=== PATIENT | male | born 1995 | race Caucasian/White ===

== ENCOUNTER 2018-06-06 22:00 | Inpatient (IN) | payer BC, OTHER ==
[2018-06-06] MEDS ORDERED: ONDANSETRON 4 MG/2 ML VIAL IVP ONE (22:09)
[2018-06-06] MEDS ORDERED: HYDROmorphONE/DILAUDID 2 MG/ML INJ IVP ONE ×2 (22:09→23:39)
[2018-06-06] MEDS ORDERED: NS 1,000 ML IV ONE (22:09)
--- NOTE | 2018-06-06 22:16 | EDPHY ---
H & P Time Seen by Provider: 06/06/18 22:06 HPI/ROS: CHIEF COMPLAINT: Trauma HISTORY OF PRESENT ILLNESS: The patient is a 22-year-old man who tried to sit on Hammock that was type between chiminies. One of the chiminies collapsed and bricks fell on top of him. He has a broken tooth and a laceration to his forehead. He has pain to his right clavicle and to his right upper abdomen. This happened just prior to arrival. He has been able to ambulate. He denies loss of consciousness. Severity: Moderate Modifying factors: None REVIEW OF SYSTEMS: Constitutional: denies: chills, fever, recent illness, recent injury EENTM: denies: blurred vision, double vision, nose congestion Respiratory: denies: cough, shortness of breath Cardiac: denies: chest pain, irregular heart rate, lightheadedness, palpitations Gastrointestinal/Abdominal: denies: abdominal pain, diarrhea, nausea, vomiting, blood streaked stools Genitourinary: denies: dysuria, frequency, hematuria, pain Musculoskeletal: See HPI Skin: See HPI Neurological: denies: headache, numbness, paresthesia, tingling, dizziness, weakness Hematologic/Lymphatic: denies: blood clots, easy bleeding, easy bruising Immunologic/allergic: denies: HIV/AIDS, transplant Nursing assessment reviewed Vital signs reviewed normal Patient is alert not anxious or lethargic and in no distress no cervical collar HEAD: Star-shaped laceration to forehead in hair line. no raccoon eyes, no Floyd sign. NECK: is nontender and has painless range of motion, trachea is midline, NEXUS criteria negative (no midline tenderness no distracting injury no altered mental status no recent alcohol and no focal neuro deficits EYES: pupils equal round reactive to light and accommodating, extraocular muscles are intact no palsy or entrapment, no subconjunctival hemorrhage ENT: Normal external inspection, dental fracture see diagram, no malocclusion CARDIOVASCULAR: heart sounds normal, not tachycardic or bradycardic, Chest is non-tender no rib tenderness no palpable fracture, no crepitus, no subcutaneous emphysema RESPIRATORY: no splinting, no paradoxical movements, gross sounds normal, no wheezes no rales no rhonchi, no respiratory distress pain and abrasion to right clavicle, no obvious deformity ABDOMEN: Complains of pain right upper quadrant. Abdomen is nontender in all 4 quadrants no guarding no rebound, no distention, no hernias, no masses or bruits. GENITAL/RECTAL: Normal external inspection, Stable pelvis NEUROLOGIC/PSYCH: Oriented x3, cranial nerves normal as assessed, face symmetrical, sensation normal, motor grossly normal, not perseverating, cranial nerves II through XII intact normal reflexes Rubi Coma score: 15 SKIN: Abrasion left thigh, laceration as above, abrasion over right clavicle. no ecchymosis, nondiaphoretic. BACK: No CVA tenderness, no vertebral point tenderness, no muscle spasm normal range of motion EXTREMITIES: Atraumatic, nontender able to bear weight, no pulse deficit, normal range of motion, normal color and temperature Source: Patient Exam Limitations: No limitations - Personal History Current Tetanus/Diphtheria Vaccine: Yes - Medical/Surgical History Hx Asthma: No Hx Chronic Respiratory Disease: No Hx Diabetes: No Hx Cardiac Disease: No Hx Renal Disease: No Hx Cirrhosis: No Hx Alcoholism: No Hx HIV/AIDS: No - Family History Significant Family History: No pertinent family hx - Social History Smoking Status: Never smoked Alcohol Use: None Constitutional: Initial Vital Signs Temperature (C) 36.7 C 06/06/18 22:09 Heart Rate 66 06/06/18 22:09 Respiratory Rate 20 06/06/18 22:09 Blood Pressure 107/57 L 06/06/18 22:09 O2 Sat (%) 100 06/06/18 22:09 O2 Delivery Mode Nasal Cannula O2 (L/minute) 2 Allergies/Adverse Reactions: No Known Allergies Allergy (Verified 06/07/18 07:50) Home Medications: Medication Instructions Recorded Lisinopril [Zestril 10 mg (*)] 10 mg PO DAILY 06/06/18 Acetaminophen [Tylenol 325mg (*)] 325 mg PO DAILY PRN 06/07/18 ED Images - Head Mouth: 1 - Dental fracture, no pulp visible, no laxity Medical Decision Making - Diagnostics Imaging: Discussed imaging studies w/ director call center sales Radiologist Procedures: Procedure: Laceration repair. Verbal consent was obtained from the patient. The 3 cm forehead laceration was anesthetized with 1% lidocaine with epi and bicarbonate locally infiltrated. The wound was irrigated copiously according to protocol, draped and explored to its base. It was approximately 1/2 cm deep. There were no deep structures involved. No tendon, nerve, or vascular injury was identified when explored. No foreign body was identified. The wound was repaired with 5 sutures, 4.0 Prolene, interrupted. The wound repair was complex with multiple flap alignment. The procedure was performed by myself. A dressing was then placed with sterile gauze and bacitracin. ED Course/Re-evaluation: Patient had a hard time getting in good position for the chest x-ray. I will order CT of his chest as well. 11:30 p.m. Patient tolerated laceration repair. We discussed his CT results. I will admit to Dr. Owens on the trauma service. Blood pressure is currently 130/80. Heart rate is 70. 1145 discussed the case with Dr. Owens who recommends ICU admission. Differential Diagnosis: Partial list of the Differential diagnosis considered include but were not limited to; abrasion, laceration, intracranial injury intra-abdominal injury, scapular fracture and although unlikely based on the history and physical exam, I also considered pneumothorax, rib fracture. Critical Care Time: Critical care time spent by me, Dr. Velásquez exclusive with this patient was 45 minutes, exclusive of the PA time exclusive of procedures. 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[employer]) 0 mg IV PRN PRN; Protocol PRN Reason: Pain, Severe Unable to Take PO Stop: 06/17/18 07:53 Last Admin: 06/07/18 10:19 Dose: 6 mg Lactated Ringer's (Lr) 1,000 mls @ 100 mls/hr IV CONT STEPHANE Stop: 12/04/18 00:29 Last Admin: 06/07/18 13:45 Dose: 1,000 mls Pantoprazole Sodium (Protonix) 40 mg IVP DAILY STEPHANE Stop: 12/04/18 08:59 Last Admin: 06/07/18 09:01 Dose: 40 mg Discontinued Medications Hydromorphone HCl (Dilaudid) 1 mg IVP EDNOW ONE Stop: 06/06/18 22:10 Last Admin: 06/06/18 22:16 Dose: 1 mg Hydromorphone HCl (Dilaudid) 1 mg IVP EDNOW ONE Stop: 06/06/18 23:40 Last Admin: 06/06/18 23:40 Dose: 1 mg Hydromorphone HCl (Dilaudid) 1 mg IVP EDNOW ONE Stop: 06/07/18 00:15 Last Admin: 06/07/18 00:16 Dose: 1 mg Sodium Chloride (Ns) 1,000 mls @ 0 mls/hr IV ONCE ONE; Wide Open PRN Reason: Protocol Stop: 06/06/18 22:10 Last Admin: 06/06/18 22:17 Dose: 1,000 mls Ertapenem 1 gm/ Sodium (Chloride) 100 mls @ 200 mls/hr IV EDNOW ONE PRN Reason: Protocol Stop: 06/07/18 00:54 Last Admin: 06/07/18 02:57 Dose: 100 mls Ketorolac Tromethamine (Toradol) 30 mg IVP ONCE ONE Stop: 06/07/18 00:01 Last Admin: 06/07/18 00:01 Dose: 30 mg Ondansetron HCl (Zofran) 4 mg IVP EDNOW ONE Stop: 06/06/18 22:10 Last Admin: 06/06/18 22:17 Dose: 4 mg Departure - Departure Disposition: [facility] Acute Clinical Impression: Dental trauma Qualifiers: Encounter type: initial encounter Qualified Code(s): S09.93XA - Unspecified injury of face, initial encounter Liver laceration Qualifiers: Encounter type: initial encounter Qualified Code(s): S36.113A - Laceration of liver, unspecified degree, initial encounter Closed right scapular fracture Qualifiers: Encounter type: initial encounter Scapula location: body Fracture alignment: nondisplaced Qualified Code(s): S42.114A - Nondisplaced fracture of body of scapula, right shoulder, initial encounter for closed fracture Contusion of kidney Qualifiers: Encounter type: initial encounter Laterality: right Qualified Code(s): S37.011A - Minor contusion of right kidney, initial encounter Condition: Fair
[2018-06-06 22:24] LABS: PLATELET COUNT 374 10^3/uL (150-400)
[2018-06-06 22:34] LABS: INR 1.14 (0.83-1.16); PROTIME(PATIENT) 14.8 SEC (12.0-15.0)
[2018-06-06] MEDS ORDERED: IOPAMIDOL (ISOVUE-300) 100 ML BTL ONE (22:38)
[2018-06-06] MEDS ORDERED: HYDROmorphONE/DILAUDID 2 MG/ML INJ ONE (23:32)
[2018-06-06] MEDS ORDERED: KETOROLAC 30 MG/1 ML SDV ONE (23:59)
[2018-06-07] MEDS ORDERED: KETOROLAC 30 MG/1 ML SDV IVP ONE
[2018-06-07] MEDS ORDERED: NALOXONE HCL 0.4 MG/ML INJ IVP PRN ×2 (00:03→07:54)
[2018-06-07] MEDS ORDERED: HYDROmorphONE/DILAUDID 2 MG/ML INJ IVP ONE (00:14)
[2018-06-07] MEDS ORDERED: LIDOCAINE 2% JELLY 20 ML (UROJECT) ONE (00:23)
[2018-06-07] MEDS ORDERED: ERTAPENEM 1 GM in NS 100 ML IV ONE (00:25)
--- NOTE | 2018-06-07 02:37 | GHP ---
[f rep st] History and Physical ADMITTING DIAGNOSIS: Multiple trauma with scalp laceration (repaired), right scapular fracture, grade 3 liver laceration, hemoperitoneum, inferior pubic ramus fracture, contusion lower pole right kidney, right L1 transverse process fracture (age-indeterminate), right frontal sinusitis, left upper central incisor fracture. 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 A hammock was strung between two chimneys and when he got into it one of the chimneys fell over. Multiple bricks landed on him. He did not have to be dug out of the pile of bricks as they hit him and rolled off. This happened at approximately 9 p.m. He came directly to the emergency room and was evaluated by Dr. Emmanuel Velásquez. Initially, he was felt to be minimally injured. His star-shaped laceration in his hairline was repaired. A scapular fracture was identified. He started complaining of more abdominal tenderness. Repeat evaluation was carried out with a CT. This identified the hemoperitoneum, the laceration in the left lobe of the liver (grade 3), and contusion in the lower pole of the right kidney without significant perinephric hemorrhage. It reconfirmed the comminuted fracture of the right scapular body, the inferior pubic ramus fracture on the right, and the transverse process of L1. Small bubbles of peritoneal free air were identified in the abdomen. As it has become more complicated, I was asked to consult. Initially, his pain was poorly controlled and he had a very tender abdomen. His airway was clear, his breathing was npt compromised and there was no active hemorrhage. Further stabilization was carried out including placing a Sheriff catheter, repeat lab work, managing pain and observation. When I returned 40 minutes later his abdomen was much softer. He was much more comfortable. His vital signs were stable. Additional history: He does not smoke. He drinks approximately 5 drinks a week. He has no known drug allergies. He has takes lisinopril 10 mg a day for hypertension for 6 years. His prior surgeries include a left labral tear repair and also a right mandibular fracture repair. He had an osteochondroma removed from his left 1st toe. There is no history of rheumatic fever, tuberculosis, hepatitis, or transfusions. Wears contacts for visual correction. No limits on his activities. No history of steroid use. PHYSICAL EXAMINATION: GENERAL: He is now awake and alert. He has the repaired laceration in his hairline center of his forehead. He has a dental fracture mentioned above. He is awake, alert, and oriented. His skull is otherwise normocephalic. There is no Floyd sign or raccoon eyes. He has normal dental occlusion save for the missing portion of the tooth. NECK: Supple and nontender. There are no focal lateralizing neurologic findings. Strength is 5/5 in all muscle groups. His back is unremarkable. LUNGS: Clear to auscultation. Thoracic and lumbar spine nontender to palpation, which lends some degree of credence to the concept that the right L1 transverse process fracture may be old. His pelvis is stable to AP and lateral compression. ABDOMEN: Now soft and nontender. Sheriff catheter is in place. Lower extremities are unremarkable. PLAN: I will put him in the intensive care unit and follow serial H and Hs and the abdominal examination. Should he deviate from the expected course, operative evaluation may be carried out. /[id number]/MODL MTDD
[2018-06-07] MEDS: LR 1,000 ML IV SCH ×3 (02:57→23:16)
[2018-06-07] MEDS: HYDROmorphONE/DILAUDID 1 MG/ML INJ IVP PRN ×5 (03:01→07:56)
[2018-06-07 04:20] LABS: INR 1.19 (0.83-1.16); PROTIME(PATIENT) 15.3 SEC (12.0-15.0)
[2018-06-07] MEDS: ACETAMINOPHEN 500 MG TAB PO SCH ×3 (06:10→20:50)
[2018-06-07] MEDS ORDERED: HYDROmorphONE/DILAUDID 6 MG/30 ML PCA IV PRN (07:54)
[2018-06-07] MEDS ORDERED: PANTOPRAZOLE SODIUM 40 MG VIAL IVP SCH (09:00)
--- NOTE | 2018-06-07 09:44 | GCON ---
[f rep st] CONSULTATION [facility] CONSULTATION REASON FOR ADMISSION: Multitrauma. Mr. Galan is a 22-year-old white male without past medical histo ry. He presented to the emergency room after numerous bricks fell on top of him. Apparently, he was sitting on a hammock that was attached between 2 chimneys. He sat on the hammock and a friend joine d him on the hammock, at which time the bricks fell, landing mostly on him. He was brought to the ergency room and was found to have a fractured right clavicle, a broken tooth, and a laceration to ak s forehead. Abdominal CT revealed a laceration of the left hepatic lobe and a contusion of the lower pole of the right kidney. He also was found to have a comminuted fracture of the right scapula, pos sible inferior pubic ramus fracture on the right, and a fracture through the right transverse process of L1 vertebral body. In discussion with the patient, he states that overall he feels somewhat bett er. His pain is reasonably well controlled except when he moves. He is awake and alert and oriented . REVIEW OF SYSTEMS: 10-point review of systems performed and negative except for what is listed in HP I. PAST MEDICAL HISTORY: Hypertension. FAMILY HISTORY: Noncontributory. SOCIAL HISTORY: No history of tobacco use. He states he drinks 5 alcoholic drinks per week. 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 MEDICATIONS: Medications at home include lisinopril. PHYSICAL EXAMINATION: VITAL SIGNS: Blood pressure is 136/68, pulse is 69, respirations 13, temperat ure 36.6, oxygen saturation 97% on 3 L. GENERAL: He is a well-developed, well-nourished, 22-year-ol d white male who is resting comfortably, in no acute distress. HEENT: Eyes are SAIMA, EOMI. Throat s hows no erythema or tonsillar hypertrophy. He has a fractured tooth. NECK: Supple. No cervical ad enopathy. HEART: Regular rate and rhythm without murmurs, rubs, gallops. LUNGS: Clear to ausculta tion without wheeze or rhonchi. ABDOMEN: Soft, nontender. Bowel sounds are present. EXTREMITIES: No clubbing, cyanosis, or edema. LABORATORIES: White count is 20, hemoglobin 13, hematocrit 38, platelet count 290. INR is 1.19. So dium 139, potassium 3.8, chloride 104, CO2 24, BUN 17, creatinine 1.1, glucose is 145. AST is elevat ed to 67, ALT is elevated to 83. Alcohol level is 34. IMPRESSION: 1. Status post multi-trauma. 2. Scapular fracture. 3. Grade 3 liver laceration. 4. Inferior pubic ramus fracture. 5. Hemoperitoneum. 6. Contusion, right kidney. 7. Left upper central incisor fracture. RECOMMENDATIONS: 1. Continue adequate pain control. 2. DVT and PE prophylaxis. 3. Stress ulcer prophylaxis. 4. PT and OT. 5. Will discuss case with Trauma Surgery. 6. Thank you very much. /[id number]/MODL
--- NOTE | 2018-06-07 10:01 | PDMN ---
Medical Necessity Medical necessity: Pt meets inpt criteria peer MD order and Pain Management GRG and Gastroenterology GRG, Hemoperitoneum, est LOS>2MN for eval/ management/ monitoring of multiple injuries sustained in fall including liver laceration- grade 3 w/mod volume peritoneal hemorrhage accumulating in deep pelvis, R renal contusion, comminuted fx of R scapular body, inferior pubic ramus fx R, L upper central incisor fx, scalp laceration. Scalp laceration repaired, pt requiring ICU monitoting, serial H&H's, pain management IV Dialudid every 1-2 hrs over night, IVF.
[2018-06-07] MEDS ORDERED: POLYETHYLENE GLYCOL 3350 17 GM PKT PO PRN (10:42)
[2018-06-07] MEDS ORDERED: MAGNESIUM HYDROXIDE 30 ML UDCUP PO PRN (10:42)
[2018-06-07] MEDS ORDERED: BISACODYL 10 MG SUPP PR PRN (10:42)
[2018-06-07] MEDS ORDERED: LACTULOSE 20 GM/30 ML UDCUP PO PRN (10:42)
--- NOTE | 2018-06-07 11:36 | ASMTCMCOM ---
CM Note CM Note Notes: Patient admitted with multiple fractures and internal injuries after being crushed by bricks that fell from a chimney. He is stable and A&O x4. I met with patient and explained Case Management involvement. 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 His apartment is in the basement. His uncle is at the bedside, and his parents are driving here from [place] today. He may need letters/documentation for school; he will email his professors today. PT/OT have been ordered, as well as an inpatient rehab consult. Case Management will follow for discharge planning. Date Signed: 06/07/2018 10:26 AM Electronically Signed By:Jennifer Ospina RN
--- NOTE | 2018-06-07 12:45 | TRAUMAPN ---
Trauma Progress Note Assessment/Plan: 22 y/o M s/p fall while swinging on hammock between two chimneys. Left liver lobe laceration grade III- blood counts trending down, but stable. May need exploratory laparotomy, but will hold off given clinical improvement and stable H&H Right kidney contusion- uo good Right scapular fx- nonoperative Possible inferior pubic ramus fx right side Right transverse process of L1 vertebral body Free intraperitoneal air- WBC stable S: Feeling much better. No new pain. Abdominal pain much improved. O:Alert Afebrile HDS VSS Cardiac: RRR Lungs: No increased WOB, CTA bilaterally Abdomen soft, nontender, normoactive BS Extremities: full strength in all extremities. Limited ROM in R arm. : uo adequate Neuro: pain. 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
[2018-06-07] MEDS: SENNOSIDES/DOCUSATE SODIUM TAB PO SCH ×2 (20:38→20:50)
[2018-06-07] MEDS ORDERED: ALBUMIN 5% 500 ML IV ONE (21:00)
--- NOTE | 2018-06-07 22:56 | SOAPPROG ---
SOAP Progress Note Assessment/Plan: Assessment: VS STABLE/ HCT INCHING DOWN/ AFEBRILE/ UO MARGINAL FU CT SCAN STABLE AND NO FREE AIR ABD SOFT, MINIMALLY TENDER Plan:SERIAL HCTS 06/07/18 22:55 Objective: Vital Signs Temp Pulse Resp BP Pulse Ox 37.0 C 97 15 132/75 H 96 06/07/18 20:00 06/07/18 22:00 06/07/18 22:00 06/07/18 22:00 06/07/18 22:00 Laboratory Results 06/07/18 20:05 06/07/18 04:00 06/06/18 06/07/18 06/08/18 05:59 05:59 05:59 Intake Total 1344 1204 Output Total 790 200 Balance 554 1004 PT 15.3 SEC (12.0-15.0) H 06/07/18 04:00 INR 1.19 (0.83-1.16) H 06/07/18 04:00 ICD10 Worksheet Patient Problems: Problems Problem Status Onset Closed right scapular fracture Acute Contusion of kidney Acute Dental trauma Acute Liver laceration Acute
[2018-06-08] MEDS: ACETAMINOPHEN 500 MG TAB PO SCH ×3 (04:45→21:52)
--- NOTE | 2018-06-08 05:39 | PDCONSULT ---
Interventionist Note: Orthopaedic Consult DOS: 06/08/2018 HPI: Called to ICU floor by Dr. Ball team to see this 22y M student s/p accident with part of a chimney falling on him p/w multiple injuries including a liver laceration, hemoperitoneum, Right scapula fracture and possible pelvic injury. Right arm was placed in a sling earlier. Patient c/o some anterior, distributed right hip region pain but mostly superficial. hasn't had trouble moving hip itself. 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 otherwise doing well until this trauma PE: AxOx3. Conversational and responsive. unlabored breathing. RUE: small abrasion on top of shoulder. No Direct TTP around shoulder joint. Indirect pain with manipulation along posterior shoulder blade. FROM elbow/ wrist/hand/fingers without pain. 5/5 EPL/APB/FDS/FDP2,5/IO. SILT A/R/U/M. 2+ Radial pulse. RLE: TTP along anterior hip skin and iliac crest. No pain with right hip ROM, moving knee/ankle/foot well. SILT S/S/SP/DP/T. 2+ DP/PT. LUE: FROM, 5/5, SILT A/R/U/M, 2+ radial pulse LLE: FROM at hip and distal, 5/5 motor, SILT S/S/SP/DP/T, 2+ DP/PT IMAGING: XR pelvis, no acute fractures of ring noted. Right femur portions visualized without fracture. Right Scapula with min displaced blade fracture but no dislocation and no disruption of glenoid. CT chest shows scapula fracture of body without glenoid involvement. CT pelvis shows old, healed ischial tuberosity avulsion, possible distant hamstring avulsion, but no acute osseous fracture noted AP: 22y M [employer] student p/w Right nonoperative scapula fracture, evidence of healed , distant ischial tuberosity injury - RLE: WBAT - RUE: WBAT, sling for comfort, Elbow ROM 3x/day if using sling. WE discussed that his should ROM may remain painful but should gradually improve with time. - No operative fixation anticipated. - Followup with Dr. Levin in 6 weeks at [facility] for repeat shoulder exam and imaging, possible therapy if needed. . - Please call if ?
--- NOTE | 2018-06-08 06:41 | SOAPPROG ---
SOAP Progress Note Assessment/Plan: Assessment: VS STABLE/ HCT INCHING DOWN/ AFEBRILE/ UO MARGINAL FU CT SCAN STABLE AND NO FREE AIR ABD SOFT, MINIMALLY TENDER Plan:SERIAL HCTS 06/07/18 22:55 06/08/18 06:39 some ruq pain and tenderness but afebrile and hungry/ hct stable at 34/ uo ok/ lytes ok chest clear, cor rr Objective: Vital Signs Temp Pulse Resp BP Pulse Ox 37.0 C 96 17 123/69 H 97 06/07/18 20:00 06/08/18 04:00 06/08/18 04:00 06/08/18 04:00 06/08/18 04:00 Laboratory Results 06/08/18 04:35 06/08/18 04:35 06/07/18 06/08/18 06/09/18 05:59 05:59 05:59 Intake Total 1344 2714 Output Total 790 750 Balance 554 1964 PT 15.3 SEC (12.0-15.0) H 06/07/18 04:00 INR 1.19 (0.83-1.16) H 06/07/18 04:00 ICD10 Worksheet Patient Problems: Problems Problem Status Onset Closed right scapular fracture Acute Contusion of kidney Acute Dental trauma Acute Liver laceration Acute
[2018-06-08] MEDS ORDERED: HYDROmorphONE/DILAUDID 6 MG/30 ML PCA IV PRN (07:54)
--- NOTE | 2018-06-08 08:42 | PDINTPN ---
Support Associate Progress Note Assessment/Plan: Assessment/plan: * Status post multitrauma * Right scapular fracture -now in a sling -has been seen by Orthopedics. No surgery planned any time soon. He will follow up in the office * Grade 3 liver laceration * Hemoperitoneum -follow hemoglobin hematocrit closely * Inferior pubic ramus fracture on the right * Fractured tooth * Forehead laceration * PT/OT * Out of bed to chair Subjective: Pain better controlled. Slept well last night. Objective: Vital Signs Temp Pulse Resp BP Pulse Ox 37.0 C 71 15 131/73 H 92 06/07/18 20:00 06/08/18 06:00 06/08/18 06:00 06/08/18 06:00 06/08/18 06:00 Laboratory Results 06/08/18 04:35 06/08/18 04:35 06/07/18 06/08/18 06/09/18 05:59 05:59 05:59 Intake Total 1344 2714 Output Total 790 750 Balance 554 1964 PT 15.3 SEC (12.0-15.0) H 06/07/18 04:00 INR 1.19 (0.83-1.16) H 06/07/18 04:00 - Time Spent With Patient Time Spent With Patient: 35 min of time spent with patient, over 1/2 involved with coordination of care or counseling. Case discussed with nursing Physical Exam - Physical Exam General Appearance: alert, no apparent distress EENT: PERRL/EOMI, other (Facial abrasions) Neck: non-tender, full range of motion, supple, normal inspection Respiratory: chest non-tender, lungs clear, normal breath sounds Cardiac/Chest: normal peripheral pulses, regular rate, rhythm Peripheral Pulses: 2+: carotid (R), carotid (L), femoral (R), femoral (L), dorsalis-pedis (R), dorsalis-pedis (L) Abdomen: soft, No non-tender Male Genitalia: deferred Rectal: deferred Skin: normal color, warm/dry Extremities: normal range of motion, non-tender, normal inspection, normal capillary refill Neuro/Psych: no motor/sensory deficits, alert, normal mood/affect, oriented x 3 ICD10 Worksheet Patient Problems: Problems Problem Status Onset Closed right scapular fracture Acute Contusion of kidney Acute Dental trauma Acute Liver laceration Acute
--- NOTE | 2018-06-08 09:31 | TRAUMAPN ---
Trauma Progress Note Assessment/Plan: PAD#2 06/08/2018 Issues: Scalp lac Right scapular comminuted fracture Grade III liver lac ( left lobe) Hemoperitoneum Right L1 transverse process fracture Right inferior pubic ramus fracture Hypertemsion ( chronic problem) Assessment: Scalp lac - Repair clean and dry Right scapular comminuted fracture - using sling for pain control/support Grade III liver lac ( left lobe) VSS, HCT down slightly, Urine output adequate Hemoperitoneum - Same Right L1 transverse process fracture - thought to be old Right inferior pubic ramus fracture - thought to be old Hypertension ( chronic problem) - BP stable Subjective: No stool yet Pain control an issue when sleeping and not taking meds Objective: Vital Signs Temp Pulse Resp BP Pulse Ox 37.0 C 71 15 131/73 H 92 06/07/18 20:00 06/08/18 06:00 06/08/18 06:00 06/08/18 06:00 06/08/18 06:00 Laboratory Results 06/08/18 04:35 06/08/18 04:35 06/07/18 06/08/18 06/09/18 05:59 05:59 05:59 Intake Total 1344 2714 Output Total 790 750 500 Balance 554 1964 -500 PT 15.3 SEC (12.0-15.0) H 06/07/18 04:00 INR 1.19 (0.83-1.16) H 06/07/18 04:00 - C-Spine Clearance Cervical Spine Cleared: Yes Provider who Cleared Cervical Spine: ira Physical Exam - Physical Exam General Appearance: WD/WN, alert, no apparent distress Neck: non-tender, full range of motion, supple Respiratory: chest non-tender, lungs clear, normal breath sounds Cardiac/Chest: regular rate, rhythm Abdomen: normal bowel sounds, non-tender, soft Male Genitalia: deferred Rectal: deferred Back: Normal inspection Skin: normal color, warm/dry Neuro/Psych: no motor/sensory deficits, alert, normal mood/affect, oriented x 3 Time Spent w/Patient (minutes): 25
[2018-06-08] MEDS: SENNOSIDES/DOCUSATE SODIUM TAB PO SCH ×2 (09:39→20:47)
[2018-06-08] MEDS: PANTOPRAZOLE SODIUM 40 MG TAB PO SCH (09:39)
[2018-06-08] MEDS: KETOROLAC 30 MG/1 ML SDV IVP SCH ×3 (10:12→23:47)
[2018-06-08] MEDS ORDERED: KETOROLAC 30 MG/1 ML SDV IVP SCH (12:00)
--- NOTE | 2018-06-08 16:01 | CPEKG ---
Test Reason : OPEN Blood Pressure : / mmHG Vent. Rate : 058 BPM Atrial Rate : 057 BPM P-R Int : 128 ms QRS Dur : 076 ms QT Int : 415 ms P-R-T Axes : 021 070 041 degrees QTc Int : 408 ms Sinus rhythm Confirmed by Javier Chua ([id number]) on 06/08/2018 4:01:09 PM Referred By: Confirmed By:Javier Chua
[2018-06-08] MEDS: HYDROmorphONE/DILAUDID 2 MG TAB PO PRN (17:49)
[2018-06-08] MEDS ORDERED: HYDROmorphONE/DILAUDID 1 MG/ML INJ IVP ONE (19:00)
[2018-06-09 04:22] LABS: PLATELET COUNT 188 10^3/uL (150-400)
[2018-06-09] MEDS: KETOROLAC 30 MG/1 ML SDV IVP SCH ×3 (05:48→18:42)
[2018-06-09] MEDS: ACETAMINOPHEN 500 MG TAB PO SCH ×3 (05:51→22:24)
--- NOTE | 2018-06-09 08:26 | TRAUMAPN ---
Trauma Progress Note Assessment/Plan: PAD#2 06/08/2018 Issues: Scalp lac Right scapular comminuted fracture Grade III liver lac ( left lobe) Hemoperitoneum Right L1 transverse process fracture Right inferior pubic ramus fracture Hypertemsion ( chronic problem) Assessment: Scalp lac - Repair clean and dry Right scapular comminuted fracture - using sling for pain control/support Grade III liver lac ( left lobe) VSS, HCT down slightly, Urine output adequate Hemoperitoneum - Same Right L1 transverse process fracture - thought to be old Right inferior pubic ramus fracture - thought to be old Hypertension ( chronic problem) - BP stable PAD#3 06/09/2018 Assessment: Doing well. 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 Feels much better today and will try again IS to 3500cc BP not an issue Moving bowels/eating Plan: Transfer out of ICU today Subjective: I'm feeling better Objective: Vital Signs Temp Pulse Resp BP Pulse Ox 36.7 C 56 L 14 127/68 H 95 06/09/18 04:00 06/09/18 08:10 06/09/18 08:10 06/09/18 04:00 06/09/18 08:10 Laboratory Results 06/09/18 04:10 06/08/18 04:35 06/08/18 06/09/18 06/10/18 05:59 05:59 05:59 Intake Total 2714 1713.8 Output Total 750 1475 Balance 1964 238.8 PT 15.3 SEC (12.0-15.0) H 06/07/18 04:00 INR 1.19 (0.83-1.16) H 06/07/18 04:00 - C-Spine Clearance Cervical Spine Cleared: Yes Provider who Cleared Cervical Spine: ira Physical Exam - Physical Exam General Appearance: WD/WN, alert, no apparent distress Neck: non-tender, full range of motion Respiratory: chest non-tender, lungs clear, normal breath sounds Cardiac/Chest: regular rate, rhythm Abdomen: normal bowel sounds, non-tender, soft Male Genitalia: deferred Rectal: deferred Back: Normal inspection Skin: normal color, warm/dry Neuro/Psych: no motor/sensory deficits, alert, normal mood/affect, oriented x 3 Time Spent w/Patient (minutes): 15
[2018-06-09] MEDS: HYDROmorphONE/DILAUDID 2 MG TAB PO PRN (08:35)
[2018-06-09] MEDS: SENNOSIDES/DOCUSATE SODIUM TAB PO SCH ×2 (08:35→20:58)
[2018-06-09] MEDS: PANTOPRAZOLE SODIUM 40 MG TAB PO SCH (08:45)
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
--- NOTE | 2018-06-09 14:03 | ASMTCMCOM ---
CM Note CM Note Notes: Pt transferred to 3E from ICU today. PT/OT have cleared pt for home and he will follow up with outpatient therapy. D/C Plan: Home independent with outpatient therapy. Date Signed: 06/09/2018 02:03 PM Electronically Signed By:ANNA Isaacs
[2018-06-10] MEDS: KETOROLAC 30 MG/1 ML SDV IVP SCH ×2 (00:21→06:07)
[2018-06-10] MEDS: ACETAMINOPHEN 500 MG TAB PO SCH (06:07)
[2018-06-10 08:02] VITALS: BP 111/61
--- NOTE | 2018-06-10 08:41 | TRAUMAPN ---
Trauma Progress Note Assessment/Plan: PAD#2 06/08/2018 Issues: Scalp lac Right scapular comminuted fracture Grade III liver lac ( left lobe) Hemoperitoneum Right L1 transverse process fracture Right inferior pubic ramus fracture Hypertemsion ( chronic problem) Assessment: Scalp lac - Repair clean and dry Right scapular comminuted fracture - using sling for pain control/support Grade III liver lac ( left lobe) VSS, HCT down slightly, Urine output adequate Hemoperitoneum - Same Right L1 transverse process fracture - thought to be old Right inferior pubic ramus fracture - thought to be old Hypertension ( chronic problem) - BP stable PAD#3 06/09/2018 Assessment: Doing well. 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 Feels much better today and will try again IS to 3500cc BP not an issue Moving bowels/eating Plan: Transfer out of ICU today POD#4 06/10/2018 Assessment: Doing well. Pain controlled, eating, moving bowels, walking Plan: Discharge today Subjective: I feel much better Objective: Vital Signs Temp Pulse Resp BP Pulse Ox 36.8 C 59 L 14 111/61 95 06/10/18 08:00 06/10/18 08:00 06/10/18 08:00 06/10/18 08:00 06/10/18 08:00 Laboratory Results 06/09/18 04:10 06/08/18 04:35 06/09/18 06/10/18 06/11/18 05:59 05:59 05:59 Intake Total 1713.8 1050 Output Total 1475 1025 Balance 238.8 25 PT 15.3 SEC (12.0-15.0) H 06/07/18 04:00 INR 1.19 (0.83-1.16) H 06/07/18 04:00 - C-Spine Clearance Cervical Spine Cleared: Yes Provider who Cleared Cervical Spine: ira Physical Exam - Physical Exam General Appearance: WD/WN, alert, no apparent distress Neck: non-tender, full range of motion Respiratory: chest non-tender, lungs clear, normal breath sounds Cardiac/Chest: regular rate, rhythm Abdomen: normal bowel sounds, non-tender, soft Male Genitalia: deferred Rectal: deferred Back: Normal inspection Skin: normal color, warm/dry Lymphatic: no adenopathy Extremities: normal range of motion, non-tender, normal inspection Neuro/Psych: no motor/sensory deficits, alert, normal mood/affect, oriented x 3 Time Spent w/Patient (minutes): 15
--- NOTE | 2018-06-10 09:00 | GDS ---
DISCHARGE DIAGNOSES: 1. Scalp laceration. 2. Right scapular fracture, grade 3. 3. Grade 3 liver laceration (left lobe). 4. Hemoperitoneum. 5. Right inferior pole kidney contusion. 6. Old right inferior pubic ramus fracture. 7. Old L1 transverse process fracture. 8. Right frontal sinusitis. 9. Contusion and abrasion, (small) right proximal lateral thigh. 10. Fracture left upper central incisor. CONDITION AT DISCHARGE: Improved. DISPOSITION: Home (). CONDITION ON DISCHARGE: Good. DISCHARGE DIET: No restrictions on his diet though we do recommend that he avoid constipating foods such as bananas, rice, applesauce, and cheese. Dietary texture is unrestricted. MEDICATIONS AT DISCHARGE: He will continue Tylenol 1000 mg every 8 hours as needed for pain. He matt l use Toradol 10 mg every 6 hours as needed for pain. When that prescription has been completed, he will switch to Motrin 200 mg every 4-6 hours. He will take Dilaudid 2 to 4 mg every 4 hours p.r.n. s evere pain. He will continue his lisinopril 10 mg daily. ACTIVITY: He is to follow up with his dentist in the next 2 days and have a cap placed on his left u pper central incisor. He is to limit his activity to gentle walking for the next 4 weeks. He will follow up with Dr. Angelito Ball office in 10 days for suture removal and will call if there is any further issues. He is to take a multivitamin with zinc, copper, and C daily. /[id number]/MODL
[2018-06-10] MEDS: SENNOSIDES/DOCUSATE SODIUM TAB PO SCH (09:15)
[2018-06-10] MEDS: PANTOPRAZOLE SODIUM 40 MG TAB PO SCH (09:15)
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
--- NOTE | 2018-06-10 09:35 | ASMTDCNOTE ---
Case Management Discharge Discharge Order Complete? Answers: Yes Patient to Obtain Answers: Other Notes: friends Medications Transportation Arranged Answers: Family/Friends Discharge Comments Notes: CM spoke with RN, patient discharging independently with friends. Recommendations given to patient, CM available to support if any further needs arise. Date Signed: 06/10/2018 09:34 AM Electronically Signed By:Norma Doherty
--- NOTE | 2018-06-10 09:36 | ASMTLACE ---
[place] Length of stay for Answers: 3 days current admission Acuity / Level of Answers: Yes Care: Did the patient have an inpatient admission? # of Emergency department Answers: 1-2 visits in the last 6 months Score: 7 Date Signed: 06/10/2018 09:35 AM Electronically Signed By:Norma Doherty
== END 2018-06-10 11:45 | disposition home or self-care (01) | DRG 965 ==
LOC: OBSVTOIN 06-07 00:11 → F2N 06-07 02:27 → F3E 06-09 10:36
PROVIDERS: ADMIT Surgery; ATTEND Surgery
PROC: 0HQ0XZZ Repair Scalp Skin, External Approach (ICD-10-PCS; principal; 2018-06-07)
DX: S01.01XA Laceration without foreign body of scalp, initial encounter (principal); S36.899A Unspecified injury of other intra-abdominal organs, initial encounter; S37.011A Minor contusion of right kidney, initial encounter; S36.113A Laceration of liver, unspecified degree, initial encounter; S42.111A Displaced fracture of body of scapula, right shoulder, initial encounter for closed fracture; S02.5XXA Fracture of tooth (traumatic), initial encounter for closed fracture; E86.9 Volume depletion, unspecified; J01.10 Acute frontal sinusitis, unspecified; S70.11XA Contusion of right thigh, initial encounter; W08.XXXA Fall from other furniture, initial encounter
CPT/HCPCS: 82435-PO; 82565-PO; 82947-PO; 84132-PO; 84295-PO; 84520-PO; 85014-PO; 92523-GN; 96374; 97161-GP; 97166-GO; 97535-GO; G0480; J1170; J1335; J1885; J2405; P9041; Q9967